=== PATIENT | male | born 1990 | race Caucasian/White ===

== ENCOUNTER 2017-09-09 18:12 | Emergency (ER) | payer SELFPAY ==
--- NOTE | 2017-09-09 19:12 | RAD ---
PA AND LATERAL OF THE CHEST: 09/09/17 INDICATION: Right sided rib pain after moving and breathing. COMPARISON: None. IMPRESSION: No consolidation, pleural effusion, pneumothorax evident. The cardiomediastinal silhouette is normal. No definite acute osseous abnormality is evident. POS: [facility]
== END 2017-09-09 21:16 | disposition home or self-care (01) ==
LOC: ERS 18:12
DX: S20.211A Contusion of right front wall of thorax, initial encounter (principal); F17.210 Nicotine dependence, cigarettes, uncomplicated; W19.XXXA Unspecified fall, initial encounter
CPT/HCPCS: 71046